=== PATIENT | female | born 1940 | race Hispanic/Latino ===

== ENCOUNTER 2019-09-28 12:20 | Emergency (ER) | payer MEDICARE, OTHER ==
--- NOTE | 2019-09-28 13:55 | CT ---
CT BRAIN WITHOUT CONTRAST: HISTORY: Injury, fall, trauma to the back of the head. No loss of consciousness. Headache FINDINGS: No evidence of acute infarct, hemorrhage, midline shift or abnormal extra-axial fluid collections is seen. The ventricular size is appropriate and the basilar cisterns are patent. The bony calvarium is intact. The visualized paranasal sinuses and mastoid air cells are well aerated. There is a scalp contusion in the posterior left parietal region close to the vertex IMPRESSION: No CT evidence of acute intracranial process.
== END 2019-09-28 14:43 | disposition home or self-care (01) ==
LOC: ERS 12:20
DX: S00.03XA Contusion of scalp, initial encounter (principal); E78.5 Hyperlipidemia, unspecified; I10 Essential (primary) hypertension; Z79.82 Long term (current) use of aspirin; Z79.899 Other long term (current) drug therapy; W19.XXXA Unspecified fall, initial encounter
CPT/HCPCS: 70450

== ENCOUNTER 2020-11-12 08:23 | Outpatient (CLI) | payer OTHER | END 2020-11-12 08:24 | disposition home or self-care (01) | LOC: BICMAMMO 08:23 | PROVIDERS: ATTEND Student in an Organized Health Care Education/Training Program | DX: Z13.820 Encounter for screening for osteoporosis (principal); M85.851 Other specified disorders of bone density and structure, right thigh; M85.852 Other specified disorders of bone density and structure, left thigh | CPT/HCPCS: 77080 ==

== ENCOUNTER 2024-06-17 06:14 | Emergency (ER) | payer OTHER ==
[2024-06-17] MEDS ORDERED: Lidocaine 1% (PF) 30 ML VIAL ONE (07:22)
[2024-06-17] MEDS ORDERED: Lidocaine 1% w/Epinephrine 1:100K 20 ML VIAL ONE (07:38)
[2024-06-17] MEDS ORDERED: Bacitracin 1 PK ONE (08:09)
== END 2024-06-17 08:30 | disposition home or self-care (01) ==
LOC: ERS 06:14
DX: S90.851A Superficial foreign body, right foot, initial encounter (principal); W22.8XXA Striking against or struck by other objects, initial encounter
CPT/HCPCS: 10120

== ENCOUNTER 2025-03-23 10:18 | Outpatient (CLI) | payer OTHER ==
[2025-03-23 11:05] LABS: Estimated GFR - POC 72.0
== END 2025-03-23 10:19 | disposition home or self-care (01) ==
LOC: SCSMRI 10:18
PROVIDERS: ATTEND Family Medicine
DX: M54.16 Radiculopathy, lumbar region (principal); I63.9 Cerebral infarction, unspecified; M48.061 Spinal stenosis, lumbar region without neurogenic claudication; M48.07 Spinal stenosis, lumbosacral region
CPT/HCPCS: 36415; 70553; 72148; 76376; 82565